=== PATIENT | male | born 1985 ===

== ENCOUNTER 2020-02-29 08:43 | Day surgery (SDC) | payer OTHER ==
[~2020-02-29] VITALS: Ht 185.4 cm; Wt 126.3 kg
[2020-02-29] MEDS ORDERED: TRAZ50 PO (09:20)
[2020-02-29] MEDS ORDERED: OMEP20ER PO (09:21)
[2020-02-29] MEDS ORDERED: FAMO10 (09:21)
--- NOTE | 2020-02-29 09:23 | NUR ---
Ambulatory in Day Surgery. History, Chart, Medications and Allergies reviewed before start of procedure. Lungs clear T/O to Auscultation. Patient confirms NPO status and agrees with scheduled surgery. Pre-Op teaching done. Pt verbalizes understanding. Patient States Post-Procedure ride home has been arranged.
--- NOTE | 2020-02-29 09:26 | NUR ---
02/29/20 0926 Ermelinda Campos History, Chart, Medications and Allergies reviewed before start of procedure. PATIENT CONFIRMS NPO STATUS AND AGREES WITH SCHEDULED PROCEDURE. MONITOR INTACT WITH CONTINUOUS PULSE OXIMETRY AND INTERMITTENT BP. O2 VIA N/C INTACT THROUGHOUT SEDATION/PROCEDURE. 3-LEAD EKG REVIEWED WITH PHYSICIAN PRIOR TO START OF PROCEDURE. Bite Block Placed. HURRICAINE SPRAY TO OROPHARYX.
--- NOTE | 2020-02-29 10:30 | NUR ---
PT HAD FULL GLASS OF WATER, WHEN HE WAS GETTING DRESSED, BECAME NAUSEOUS AND THREW UP IN WASTE BUCKET THE WATER. TOLD PT TO GO SLOW WITH HIS DIET AND TO START WITH SIPS OF CLEAR FLUIDS. PT STATES STILL FEELS FINE TO GO HOME. RIDE HOME JED HERE. Discharge instructions reviewed with patient. Patient verbalizes understanding. Copy given to patient to take home. Discharged via wheelchair to private car for ride home.
== END 2020-02-29 10:32 | disposition home or self-care (01) ==
LOC: ORSCMMR 08:43 → ORD 09:45 → ORSCMMR 09:45
PROVIDERS: Internal Medicine Gastroenterology
PROC: 0DB58ZX Excision of Esophagus, Via Natural or Artificial Opening Endoscopic, Diagnostic (ICD-10-PCS; principal; 2020-02-29 09:45)
PROC: 0D758ZZ Dilation of Esophagus, Via Natural or Artificial Opening Endoscopic (ICD-10-PCS; principal; 2020-02-29 09:45)
DX: K21.0 Gastro-esophageal reflux disease with esophagitis (principal); R13.10 Dysphagia, unspecified; K29.70 Gastritis, unspecified, without bleeding; K44.9 Diaphragmatic hernia without obstruction or gangrene; G47.33 Obstructive sleep apnea (adult) (pediatric); Z79.899 Other long term (current) drug therapy
CPT/HCPCS: 88305; 88312; 88342; C1726; J2250; J3010; J7120